=== PATIENT | male | born 1980 | race Caucasian/White ===

== ENCOUNTER 2019-09-16 13:12 | Day surgery (SDC) | payer BC ==
[2019-09-16] VITALS (8 sets, daily range): BP systolic 112–134; BP diastolic 65–71; PULSE 65–91; TEMP 98.4–98.9
[~2019-09-16] VITALS: Ht 185.4 cm; Wt 72.4 kg
[2019-09-16] MEDS ORDERED: NORCO 325 MG-51 TAB PO (17:51)
--- NOTE | 2019-09-16 21:20 | NUR ---
patient up from pacu at 1905. asleep in bed. alert and oriented upon awakening. requested ice chips. patient drank a glass of water. scds on. denies pain or need for pain medication at this time. VSS. at bedside. patient ambulated to bathroom with standby assistance of nurse and . some dizziness and nausea noted. prn zofran pushed. patient given emesis basin. patient ate some jello and pudding. stated he felt good and would feel comfortable going home at this time. patient dressed with assistance of . IV to L wrist dc'd, catheter intact, bandaid and cotton ball applied. patient discharged and escorted out via wheelchair by this nurse at [id number].
== END 2019-09-16 21:20 | disposition home or self-care (01) ==
LOC: SDCO 13:12 → SURG 19:05 → SDCO 21:20
DX: K40.90 Unilateral inguinal hernia, without obstruction or gangrene, not specified as recurrent (principal)
CPT/HCPCS: OP; C1781; J0690; J1100; J1170; J1885; J2250; J2405; J2704; J2795; J3010; J7120

== ENCOUNTER 2020-04-22 08:15 | Inpatient (IN) | payer BC ==
[~2020-04-22] VITALS: Ht 185.4 cm; Wt 76.2 kg
[~2020-04-22 08:15] MED LIST: NORCO 325 MG-51 TAB PO
[2020-05-12] VITALS (13 sets, daily range): BP systolic 102–120; BP diastolic 55–64; PULSE 58–85; TEMP 97.6–98.9
[2020-05-12] MEDS ORDERED: VTAMINC250TA PO (06:15)
[2020-05-12] MEDS ORDERED: ONE-A-DAY ESSE1 EACH PO (06:16)
[2020-05-12] MEDS ORDERED: PROBIOTIC FORMU1 CAP PO (06:16)
--- NOTE | 2020-05-12 11:30 | NUR ---
Patient arrived to floor from PACU via bed. Post op checks initiated. Patient reports that pain and nausea are well controlled at this time. Laproscopic sites are well approximated, no drainage. DASHA has scant bloody drainage. Bunch in place. at bedside. Patient denies further needs at this time, call light within reach.
--- NOTE | 2020-05-12 18:56 | NUR ---
Patient resting in bed at this time. Patient rouses easily and is alert and oriented. remains at bedside. Bunch catheter in place, urine is clear and yellow. Patient continues to complain of pain that has not been below a 4/10, have administered pain medications per order. Discussed robotic surgeries and associated gas pain with patient, recommended he chew gum as soon as he can tolerate it. Patient verbalized understanding. Patient denies further needs at this time, call light within reach.
--- NOTE | 2020-05-13 03:39 | NUR ---
Patient has rested well throughout the night. PRN pain medication given when requested per orders. Pain well managed this shift. Education provided on post-surgical gas pain. Bunch catheter noted to be draining clear, yellow urine. DASHA drain to left lower abdomen. Minimal output noted. 5 lap sites noted to abdomen. All clean, dry, and intact. Orders for bedrest until morning. SCDs on bilateral legs. Patient tolerating regular diet. IVF continue to right hand. Will continue to monitor patient.
[2020-05-13 05:04] VITALS: BP 131/64; PULSE 75; TEMP 98.1
[2020-05-13 06:11] LABS: HEMATOCRIT 39.1 % (42.0-52.0); HEMOGLOBIN 13.3 g/dl (13.5-18.0)
[2020-05-13 06:25] LABS: CALCIUM 8.5 mg/dL (8.4-10.2); CREATININE, serum 0.86 (0.66-1.25); POTASSIUM 3.9 mmol/L (3.4-5.0)
[2020-05-13 08:23] VITALS: BP 122/76; PULSE 73; TEMP 98.5
--- NOTE | 2020-05-13 10:31 | NUR ---
Patient feeling a little better after roxicodone. His pain was elevated after getting up to walk in the halls for the first time. K pad provided. Pain is at his DASHA drain site. Dasha drain to bulb suction. Robotic site edges well approximated. His abdomen is rounded. Reports has has passed some flatus. Denies nausea, tolerating diet. Rikki DC per orders. Iv to int. HIs supportive at bedside.
--- NOTE | 2020-05-13 10:40 | NUR ---
DRE met with the patient to complete initial intake. The patient lives in [place] with his and their three children. The patient denies DME use and is independent with ADLs. The patient's PCP is Helene Brumfield and patient receives medications from [facility] in [place] with no difficulties. The patient does not have advanced directives but was interested in a DPOA-HC form. Form provided. The patient plans to return home with his family. There are no additional needs at this time.
[2020-05-13 11:56] VITALS: BP 113/67; PULSE 69; TEMP 98.3
--- NOTE | 2020-05-13 13:00 | NUR ---
Patient tolerated DASHA drain removal. Patient was premedicated with tordol & roxicodone. Patient still has not voided. He is scared to get up to void. He continues to tolerate diet.
--- NOTE | 2020-05-13 13:44 | NUR ---
Pt doing well. He is resting in bed at this time. He states pain medication helped some, but different pain due to drain being removed. No needs at this time, will return to give scheduled pain medication.
[2020-05-13 16:55] VITALS: BP 111/68; PULSE 63; TEMP 98
--- NOTE | 2020-05-13 17:56 | NUR ---
Patient sitting up in bed. Pain a /10. Denies the need for medication at this time. given update. Orders obtained. Patient is voiding adequately. Tolerating PO intake, Denies nausea. Scds. Int. Plans to DC tmrw.
[2020-05-13 19:48] VITALS: BP 130/75; PULSE 66; TEMP 98.1
--- NOTE | 2020-05-13 20:00 | NUR ---
Report received, assumed care for restaurant shift supervisor. Assessment complete. VS stable. Denies nausea/shortness of breath. VS remain stable. Rating pain 2/10 to abdomen-described as intermittent cramping-denies need for intervention. Tolerating PO. Voiding without difficulty. Has ambulated in the hallway x2 so far this shift. Tolerated well. Robotic sites x5-edges well approximated-no s/s of infection noted. Old DASHA drain site covered with clean gauze. States he hasnt been passing gas but can feel it moving. Spoke with respiratory therapy requesting IS. Denies needs. Spouse at bedside. Call light in reach. Will monitor.
--- NOTE | 2020-05-13 22:30 | NUR ---
Requesting pain meds for abdominal/back pain rated-described as intermittent cramping/ache-rating 5/10 on pain scale. Tramadol 100mg given per dr order. Will reassess in one hour.
--- NOTE | 2020-05-13 23:30 | NUR ---
Resting eyes closed. NO s/s of distress noted. Call light in reach. Will monitor.
[2020-05-13 23:42] VITALS: BP 126/74; PULSE 69; TEMP 98.5
[2020-05-14 04:00] VITALS: BP 130/66; PULSE 82; TEMP 98.5
--- NOTE | 2020-05-14 05:08 | NUR ---
Has done well through the night. Voiding without difficulty. Ambulated in the hallways x4 this shift. Received tramadol x1 for pain with adequate relief. Has started to pass a small amount of gas. Tolerating PO. Call light in reach. Will monitor.
--- NOTE | 2020-05-14 06:59 | NUR ---
Lying in bed with eyes open, in room with the patient. Denies pain at this time. Passing a little bit of flatus. Feels that abdominal distention has decreased. Lap sites x5 with edges well approximated, no redness/swelling/discharge noted. Site where DASHA drain was has dressing with very minimal old discharge noted on dressing. Patient says that he hopes to go home today. Denies needs at this time.
[2020-05-14 08:00] VITALS: BP 125/64; PULSE 70; TEMP 98.3
--- NOTE | 2020-05-14 08:13 | NUR ---
Reviewed all discharge instructions with the patient and his . Both deny any questions and verbalize understanding to all. Patient signs discharge paperwork and discharge packet provided to the patient. Patient will get dressed at this time, gather all belongings, then call when ready to walk out.
--- NOTE | 2020-05-14 08:43 | NUR ---
Assisted patient out to POV via wheelchair, has all belongings.
== END 2020-05-14 08:43 | disposition home or self-care (01) | DRG 658 ==
LOC: INPTSU 05-12 05:11 → SURG 05-12 07:30
PROVIDERS: ADMIT Urology
PROC: 8E0W4CZ Robotic Assisted Procedure of Trunk Region, Percutaneous Endoscopic Approach (ICD-10-PCS; 2020-05-12)
PROC: 0TB14ZZ Excision of Left Kidney, Percutaneous Endoscopic Approach (ICD-10-PCS; principal; 2020-05-12 07:30)
DX: C64.2 Malignant neoplasm of left kidney, except renal pelvis (principal); Z20.828 Contact with and (suspected) exposure to other viral communicable diseases
CPT/HCPCS: A4314; A9284; J0690; J1885; J2250; J2405; J2704; J3010; J7120

== ENCOUNTER 2021-07-23 09:23 | Day surgery (SDC) | payer BC ==
[~2021-07-23] VITALS: Ht 185.4 cm; Wt 72.6 kg
[~2021-07-23 09:23] MED LIST changes: +ONE-A-DAY ESSE1 EACH PO; +PROBIOTIC FORMU1 CAP PO; +VTAMINC250TA PO
[2021-07-23] MEDS ORDERED: VTAMINC250TA PO (10:54)
[2021-07-23 11:06] VITALS: BP 126/73; PULSE 61; TEMP 97
--- NOTE | 2021-07-23 12:40 | NUR ---
[facility]. No new orders.
[2021-07-23] MEDS ORDERED: NORCO 325 MG-51 TAB PO (13:23)
[2021-07-23 14:15] VITALS: BP 121/69; PULSE 70; TEMP 98.2
--- NOTE | 2021-07-23 14:15 | NUR ---
Patient returned to bay 6 via cart. Asleep, wakes easily to name. Postop vitals started. Apple juice and pudding provided. at bedside.
[2021-07-23 14:30] VITALS: BP 116/70; PULSE 81
--- NOTE | 2021-07-23 14:30 | NUR ---
Patient sitting semi fowlers in bed. Alert and oriented. Reports pain 2/10, does not want pain medication. Tolerating food and drink well.
[2021-07-23 14:45] VITALS: BP 128/70; PULSE 72
--- NOTE | 2021-07-23 14:45 | NUR ---
Patient sitting high reddy in bed. Alert and oriented. Reviewed discharge instructions, patient and verbalized understanding. Patient up to bathroom, able to void without difficulty. Patient reports increase in pain and request pain medication.
--- NOTE | 2021-07-23 15:10 | NUR ---
Discontinued IV with no complications. Instructed patient to dress and open door when ready.
--- NOTE | 2021-07-23 15:26 | NUR ---
Patient transfered to personal vehicle via wheelchair accompanied by .
== END 2021-07-23 15:26 | disposition home or self-care (01) ==
LOC: SDCO 09:23
DX: K40.91 Unilateral inguinal hernia, without obstruction or gangrene, recurrent (principal)
CPT/HCPCS: C1781; J0690; J1100; J1885; J2405; J2704; J3010; J7120